=== PATIENT | male | born 1985 | race African-American/Black ===

== ENCOUNTER 2021-05-20 22:30 | Emergency (ER) | payer BC ==
[~2021-05-20] VITALS: Ht 177.8 cm; Wt 158.8 kg
--- NOTE | 2021-05-21 00:20 | NUR ---
Dr Lozano into eval patient.
[2021-05-21] MEDS ORDERED: KETOROLAC TROMETHAMINE 60 MG INJ IM ONE ×2 (00:45→00:54)
[2021-05-21] MEDS ORDERED: CYCL10TA9 PO (02:53)
[2021-05-21] MEDS ORDERED: NAPR-1164 PO (02:53)
--- NOTE | 2021-05-21 02:57 | NUR ---
Patient discharged to home in stable condition. Written and verbal after care instructions given. Patient verbalizes understanding of instructions. Stressed follow up or return to ER for worsening s/s. Patient out of ER with steady gait, no acute signs of distress, VSS, all belongings taken, provided with copies of xray result and cd.
[2021-05-21 02:58] VITALS: BP 150/90
== END 2021-05-21 02:58 | disposition home or self-care (01) ==
LOC: ER 22:38
DX: M54.50 Low back pain, unspecified (principal); M79.642 Pain in left hand; E66.9 Obesity, unspecified; Z68.43 Body mass index [BMI] 50.0-59.9, adult
CPT/HCPCS: 73130; 96372; 99283; J1885; A4663